=== PATIENT | male | born 2000 | race Two or more races ===

== ENCOUNTER 2024-09-27 08:25 | Day surgery (SDC) | payer MEDICAID, SELFPAY ==
[2024-09-26 10:29] VITALS: BMI 27.8
[2024-09-26 11:24] LABS: Basophils # (Auto) 0.1 Thou/mm3 (0.0-0.2); Basophils % (Auto) 2 % (0-2.5); Eosinophils # (Auto) 0.1 Thou/mm3 (0.0-0.5); Eosinophils % (Auto) 2 % (0-10); Hematocrit 43.3 % (41.0-53.0); Hemoglobin 14.7 g/dL (13.5-16.0); Immature Granulocytes % (Auto) 0 % (0-0); Immature Granulocytes Auto 0.01 Thou/mm3 (0.00-0.00); Lymphocytes # (Auto) 2.3 Thou/mm3 (1.0-4.8); Lymphocytes % (Auto) 38 % (10-50); Mean Corpuscular HGB Conc 33.9 g/dl (31.0-37.0); Mean Corpuscular Hemoglobin 28.2 pg (25.0-35.0); Mean Corpuscular Volume 83 fL (80-100); Monocytes # (Auto) 0.8 Thou/mm3 (0.0-0.8); Monocytes % (Auto) 13 % (0-12); Neutrophils # (Auto) 2.8 Thou/mm3 (1.8-7.7); Neutrophils % (Auto) 46 % (37-80); Nucleated Red Blood Cell % 0 /100 WBC (0); Platelet Count 307 Thou/mm3 (140-440); RDW Standard Deviation 41.5 fL (35.1-43.9); Red Blood Count 5.21 Miln/mm3 (4.50-5.90)
[2024-09-26 11:40] LABS: INR 0.9 (0.9-1.3); Partial Thromboplastin Time 26.3 Seconds (22.0-36.0); Prothrombin Time 10.3 Seconds (9.0-12.2)
[2024-09-26 11:46] LABS: Alanine Aminotransferase 16 U/L (10-49); Albumin, Serum 4.9 gm/dL (3.5-5.0); Alkaline Phosphatase 46 U/L (46-116); Anion Gap 9 (7-16); Aspartate Amino Transferase 16 U/L (0-34); BUN/Creatinine Ratio 11 Ratio (12-20); Bilirubin,Total 0.4 mg/dL (0.3-1.2); Blood Urea Nitrogen 10 mg/dL (9-23); Carbon Dioxide 28.3 mMol/L (20.0-31.0); Chloride 105 mMol/L (98-107); Creatinine (Component) 0.9 mg/dL (0.6-1.3); Estimated Creatinine Clearance 141.3 mL/min (>60); Globulin 2.5 gm/dL (2.3-3.5); Glucose 68 mg/dL (74-106); Osmolality,Calculated 280 (275-295); Potassium 4.5 mMol/L (3.4-5.1); Sodium 142 mMol/L (136-145); Total Protein 7.4 gm/dL (5.7-8.2); eGFR > 60 See Note
[2024-09-27] VITALS (8 sets, daily range): BP systolic 118–137; BP diastolic 68–96; PULSE 78–103; RESP 13–19; TEMP 36.7–36.8; O2SAT 95–100; BMI 29.4
--- NOTE | 2024-09-27 09:08 | SUR.PREOP ---
Patient expressed gratitude for prayer before their procedure.
[2024-09-27] MEDS: RINGERS LACTATED 1000 ML 1,000 ML 20 ML IV (09:20)
--- NOTE | 2024-09-27 12:28 | PD.SUROPNT ---
Date of Procedure 09/27/24 Pre Op Diagnosis Symptomatic left inguinal hernia Post Op Diagnosis Same, indirect left inguinal hernia Procedure Repair of the left indirect inguinal hernia with high ligation of the sac and placement of 2 x 4 Marlex mesh on the floor Findings Patient was found to have a large wide sac firmly adherent to the cord structures. There was also preperitoneal fat along the cord structures present with the sac Procedure Description After the patient was given endotracheal anesthesia his lower abdomen was prepped with chloreprep solution and draped. Standard left groin incision was made in the external oblique was reached. Incision was made over the external oblique and the patient was found to have a large sac next to the cord structures. The cord structures were encircled around a Sushil drain and the sac was dissected away from the cord structures with considerable care avoiding injury to the blood vessels and the cord structures. . It was opened and was found to contain no omentum. Patient had a large opening in this hernial sac in the mouth of the internal ring was wide. I suture ligated this with 2-0 chromic and then divided. Another 2-0 chromic suture ligation was used to prevent any slippage of the previous suture. Patient also had a small preperitoneal fat coming along the cord structures which was from the remaining cord structures and suture-ligated with a 2-0 chromic at the internal ring. Then I palpated the floor of the inguinal canal which appeared to be strong. I placed a 2 x 4 Marlex mesh and attached it medially to the pubic tubercle and laterally it was tucked underneath the external oblique after crossing the cord structures. I placed one stitch of Prolene lateral to the cord structures. Then external oblique was closed with running 2-0 Vicryl and subcutaneous tissues was approximated with 30 plain I injected half percent Marcaine with epinephrine for analgesia and the skin was closed with 4-0 Monocryl. Dressing was applied with Adaptic and 4 x 4 and the patient tolerated the procedure well and left operating room in stable condition. Anesthesia GETA Implants 2 x 4 Marlex mesh on the floor of the inguinal canal Pathology / specimen None Estimated Blood Loss 10 Condition Stable Disposition PACU Surgeon Iman Tse MD Surgical Staff Operation Date: 09/27/24 10:45 Case Staff Anesthesiologist: Francisco Gustafson RN First Assistant: Pascale Drew
--- NOTE | 2024-09-27 12:39 | SUR.PHASEI ---
1205: Pt received in [facility] via gurney. Report from Eli ALCOCER and Dr. Santana. Pt obtunded. Resp even, unlabored. VS stable. Dressing to left groin dry, clean, intact with no swelling, discoloration. 1230: Pt awakening. Is responsive. Resp even, unlabored. VS stable. Dressing unchanged. No c/o pain, discomfort.
--- NOTE | 2024-09-27 14:18 | SUR.PHASEII ---
1248: Pt more awake, alert. VS stable. Dressing remains dry, clean, intact with no swelling, discoloration to surgical site left groin. States he has small amount of pain with movement and is tolerable. Pt sitting up tolerating po fluids with no difficulty swallowing and no n/v. 1315: Pt fully awake, oriented x3. Pt assisted to restroom. Ambulation steady. Pt and mother stated understanding of discharge instructions. Pt discharged from [facility] in stable condition.
== END 2024-09-27 13:15 | disposition home or self-care (01) ==
PROVIDERS: PCP Family Medicine; Referring Provider Surgery; Visit Provider Surgery
PROC: (CPT 49505; principal; 2024-09-27 10:30)
DX: K40.90 Unilateral inguinal hernia, without obstruction or gangrene, not specified as recurrent (principal)
CPT/HCPCS: 49505; 36415; 80053; 85025; 85610; 85730; A4217; A4649; C1781; J0131; J1100; J1885; J2250; J2405; J2704; J3010; J3490; J7120